=== PATIENT | male | born 1940 | race Caucasian/White ===

== ENCOUNTER 2018-10-10 12:57 | Inpatient (IN) ==
[2018-10-10] MEDS ORDERED: DUONEB (A & A) INH ONE ×2 (13:21→14:47)
[2018-10-10] MEDS ORDERED: SOLU-MEDROL IV ONE (13:22)
[2018-10-10 13:54] LABS: BASO# 0.04 X1000 (0.0-0.2); BASO% 0.4 % (0.0-0.8); EOS# 1.17 X1000 (0.0-0.7); EOS% 11.5 % (0.0-10.0); HEMATOCRIT 46.8 % (42.0-52.0); HEMOGLOBIN 15.2 g/dL (14.0-18.0); IMM GRAN# 0.04 X1000 (0.0-0.04); IMM GRAN% 0.4 % (0.0-0.5); LYMPH# 2.34 X1000 (1.2-3.4); MCH 29.2 PG (27-31); MCHC 32.5 g/dL (33-37); MCV 89.8 FL (81-99); MONO# 1.23 X1000 (0.11-0.59); MONO% 12.1 % (1.7-9.3); MPV 10.1 FL (7.4-10.4); NEUT# 5.36 X1000 (1.4-6.5); NEUT% 52.6 % (42.2-75.2); PLT 315 X1000 (130-400); RBC 5.21 XMIL (4.7-6.1); RDW 13.1 % (11.5-14.5); WBC 10.18 X1000 (4.8-10.8)
[2018-10-10 14:03] LABS: INR 0.93; PROTIME 13.2 Seconds (11.0-16.0)
[2018-10-10 14:04] LABS: PTT 33.6 Seconds (22.3-41.8)
[2018-10-10 14:13] LABS: AGAP 13; ALB/GLOB RATIO 1.1; ALBUMIN 3.7 g/dL (3.5-5.0); ALKALINE PHOSPHATASE 138 U/L (32-122); BUN 13 mg/dL (8-22); CALCIUM 9.9 mg/dL (8.8-10.2); CHLORIDE 102 mmol/L (98-107); CK PROFILE 77 U/L (24-204); COSMO 276; ESTIMATED GFR > 60; GLUCOSE 74 mg/dL (70-104); GOT 19 U/L (10-34); GPT 10 U/L (10-44); POTASSIUM 4.5 mmol/L (3.5-5.1); SODIUM 139 mmol/L (136-145); TCO2 24 mmol/L (25-35); TOTAL BILIRUBIN 0.35 mg/dL (0.20-1.00); TOTAL PROTEIN 7.2 g/dL (6.3-8.3)
--- NOTE | 2018-10-10 14:36 | Diag Imaging Result Doc PS360 ---
EXAM: CHEST-1 VIEW INDICATION: wheezing, tachycardic TECHNIQUE: 2 views COMPARISON: 08/30/2015 FINDINGS: The lungs are grossly clear. There is no discrete pleural fluid collection or pneumothorax. The cardiomediastinal silhouette and central vasculature are grossly unremarkable. IMPRESSION: No evidence of acute pathology by plain radiograph. Electronically signed by Omar Santiago 10/10/2018 2:34 PM
[2018-10-10 15:33] LABS: URINE SOURCE CLEAN CATCH
[2018-10-10 15:37] LABS: BILIRUBIN URINE NEGATIVE (NEGATIVE); BLOOD URINE NEGATIVE (NEGATIVE); COLOR YELLOW; GLUCOSE URINE NEGATIVE (NEGATIVE); KETONE URINE NEGATIVE (NEGATIVE); LEUKOCYTES URINE NEGATIVE (NEGATIVE); NITRITE URINE NEGATIVE (NEGATIVE); PH URINE 5.5; PROTEIN URINE NEGATIVE (NEGATIVE); SP GRAVITY URINE 1.018; TURBIDITY URINE CLEAR (CLEAR); UROBILINOGEN URINE NORMAL (NORMAL)
[2018-10-10 15:38] LABS: UR EPITHELIAL CELLS <10 /HPF (<10); URINE BACTERIA NEGATIVE /HPF; URINE RBC <10 /HPF (<10); URINE WBC <10 /HPF (<10)
--- NOTE | 2018-10-10 19:36 | HISTORY AND PHYSICAL ---
CHIEF COMPLAINT: Shortness of breath, cough and wheezing for the last 2 days. HISTORY OF PRESENT ILLNESS: He is an 78-year-old white male patient of Dr. Archuleta, came in with 3- day history of URI symptoms, cough and wheezing. He is in mild respiratory distress. He is markedly wheezing. He was evaluated in the emergency room after treating with 3 bronchodilators treatment, without any help. Basically admitted to the hospital for acute asthmatic exacerbation. Most of the history was obtained from the patient's caregiver. He denies any chest pain. No swelling of feet. No PND. No orthopnea. PAST MEDICAL HISTORY: Hypertension, hyperlipidemia, dementia, depression, prostate cancer. PAST SURGICAL HISTORY: Reported prostatectomy, C-spine surgery through the back, left inguinal herniorrhaphy. MEDICATIONS: Vasotec 20 p.o. b.i.d., Crestor 20 daily, aspirin 81 mg daily, Aricept 10 mg daily, Namenda 10 p.o. b.i.d., Effexor 50 mg daily. ALLERGIES: Not known. SOCIAL HISTORY: He has been . Retired from [employer]. Lives in [place]. No smoking. No alcohol. Two children. Vaccinations were not up to date. He is Full [employer]. FAMILY HISTORY: No cancer. Father due to alcohol-related problems. Mother of old age. REVIEW OF SYSTEMS: HEENT: No vision problem. No earache. Sniffles, postnasal drainage, cough, congestion. History of neck surgery through the back. Cardiopulmonary: No chest pain. Shortness of breath, cough and wheezing. No PND. No orthopnea. No swelling of legs. GI: No nausea, vomiting, abdominal pain or bleeding per rectum. : Prostate surgery and inguinal hernia surgery on the left side. No back pain. Neurologic: No focal symptoms or weakness. Some short-term memory loss. No seizure activity. PHYSICAL EXAMINATION: GENERAL: He is 5 feet 11 inches, 148 pounds. Afebrile, pulse is 97, blood pressure 133/80. HEENT: Atraumatic, normocephalic. Pupils equal and react to light. Tongue is in midline. Nose and throat congested. NECK: Supple. Scar present on the back of the neck. JVD is not elevated. CHEST: Bilateral wheezing. HEART: Distant heart sounds. No murmur appreciated. ABDOMEN: Belly is soft, nontender. Midline lower abdominal scar as well as left inguinal area. RECTAL: Exam deferred. EXTREMITIES: No peripheral edema noted. SKIN: Multiple seborrheic keratoses noted. LABORATORY DATA: CBC: White cell count 10, hematocrit 46, platelets 315,000. PT/INR is normal. SMA 7 is normal. LFTs were normal. Alkaline phosphate is 138. Urinalysis is clear. Blood cultures are pending. DIAGNOSTIC DATA: Chest x-ray: No acute pathology noted. ASSESSMENT AND PLAN: 1. An 78-year-old white male admitted to the hospital with acute asthma exacerbation. Plan is bronchodilators, intravenous steroids, intravenous Levaquin. 2. Reconcile home medicines. 3. Dementia with short-term memory loss. We will check the B12 and TSH. Follow up on electrocardiogram and cardiac enzymes. 4. Deep venous thrombosis and gastrointestinal prophylaxis with Lovenox and Protonix. 5. Initiate vaccination protocol prior to the discharge. The patient has been admitted to Dr. Archuleta' service. As per the records, he had a pneumococcal vaccine 23. It was given in 2019. Discussed with the patient and the caregiver at bedside. We will follow up. cc: MD Dwayne Kelly Jr, MD
[2018-10-10] MEDS: LEVAQUIN 500 MG/D5W 500 MG/100 ML IVPB IV SCH (20:30)
[2018-10-10] MEDS: PROTONIX IV SCH (20:31)
[2018-10-10] MEDS: SODIUM CHLORIDE 0.9% INJ SCH (20:31)
[2018-10-10] MEDS: VASOTEC PO SCH (20:32)
[2018-10-10] MEDS: LOVENOX SUBQ SCH (20:32)
[2018-10-10] MEDS ORDERED: NAMENDA PO SCH (21:00)
[2018-10-10] MEDS: DUONEB (A & A) INH PRN ×2 (21:24→23:51)
[2018-10-10] MEDS: NAMENDA PO SCH (22:15)
[2018-10-10] MEDS: SOLU-MEDROL IV SCH (22:16)
[2018-10-11] MEDS: SOLU-MEDROL IV SCH ×3 (06:43→21:57)
[2018-10-11 07:04] LABS: TSH 0.38 uIUmL (0.27-4.20)
[2018-10-11] MEDS: ASPIRIN PO SCH (09:26)
[2018-10-11] MEDS: PRISTIQ ER PO SCH (09:26)
[2018-10-11] MEDS: VASOTEC PO SCH ×2 (09:26→21:56)
[2018-10-11] MEDS: CRESTOR PO SCH (09:26)
[2018-10-11] MEDS: NAMENDA PO SCH ×2 (09:27→20:37)
[2018-10-11] MEDS: ARICEPT PO SCH (09:27)
[2018-10-11] MEDS: DUONEB (A & A) INH PRN ×2 (10:34→17:21)
--- NOTE | 2018-10-11 13:29 | PROGRESS NOTE ---
DATE: 10/11/2018 SUBJECTIVE: The patient is a little better and decreased wheezing, shortness of breath. No chest pain. PHYSICAL EXAMINATION: Temperature is 98.8 degrees, pulse is 70, blood pressure is 113/74, room air 94%.HEENT: Within normal limits. Chest: No wheezing. Heart sounds are regular. Belly is soft, nontender. No obvious neurological deficits. ASSESSMENT AND PLAN: 1. Acute asthma exacerbation. Continue on IV Levaquin, IV steroids, and bronchodilators. 2. Dementia, stable. Follow up on laboratory data. B12, TSH are normal. 3. Follow-up on cardiac enzymes was negative. 4. Continue present treatment. 5. Dr. Archuleta is going to follow up in the morning. LEVEL OF DOCUMENTATION: 25 minutes. cc: MD Dwayne Kelly Jr, MD MTDD
[2018-10-11] MEDS: LEVAQUIN 500 MG/D5W 500 MG/100 ML IVPB IV SCH (20:36)
[2018-10-11] MEDS: LOVENOX SUBQ SCH (20:36)
[2018-10-11] MEDS: SODIUM CHLORIDE 0.9% INJ SCH (20:37)
[2018-10-11] MEDS: PROTONIX IV SCH (20:37)
[2018-10-12] MEDS: SOLU-MEDROL IV SCH ×3 (06:56→21:55)
[2018-10-12] MEDS: DUONEB (A & A) INH PRN ×2 (07:15→21:35)
--- NOTE | 2018-10-12 08:40 | EKG Report ---
Test Performed on : 10/10/2018 1:12:41 PM Test Reason : SOB Blood Pressure : / mmHG Vent. Rate : 094 BPM Atrial Rate : 094 BPM P-R Int : 132 ms QRS Dur : 110 ms QT Int : 356 ms P-R-T Axes : 079 -36 062 degrees QTc Int : 445 ms Normal sinus rhythm. Left axis deviation Right bundle branch block Abnormal ECG When compared with ECG of 30-AUG-2015 17:20, No significant change was found Unconfirmed Result
--- NOTE | 2018-10-12 08:45 | PROGRESS NOTE ---
DATE: 10/12/2018 SUBJECTIVE: The patient says he is feeling better. He does not appear to be short of breath at this point. OBJECTIVE: Vital Signs: Blood pressure is 131/78, respirations 18, pulse 80, temperature 98 degrees Fahrenheit, oxygen saturation is 92% on room air. HEENT: Normocephalic. EOMS intact. PERRLA. Throat clear. Lungs: Scattered wheezes with a few rales anteriorly. Heart: Regular rate and rhythm without murmurs, gallops, or friction rubs. Abdomen: Soft. Active bowel sounds. No organomegaly or tenderness. Neurological: Intact grossly, except for a little dementia. ASSESSMENT: 1. Bronchospasm. 2. Bronchitis. 3. Dementia. PLAN: Continue treatment with IV steroids and IV Solu-Medrol. The patient is improving. cc: Dwayne Archuleta Jr, MD
[2018-10-12] MEDS: PRISTIQ ER PO SCH (10:26)
[2018-10-12] MEDS: VASOTEC PO SCH ×2 (10:27→21:51)
[2018-10-12] MEDS: ASPIRIN PO SCH (10:27)
[2018-10-12] MEDS: NAMENDA PO SCH ×2 (10:27→21:50)
[2018-10-12] MEDS: ARICEPT PO SCH (10:28)
[2018-10-12] MEDS: CRESTOR PO SCH (10:28)
[2018-10-12] MEDS: LEVAQUIN 500 MG/D5W 500 MG/100 ML IVPB IV SCH (21:50)
[2018-10-12] MEDS: PROTONIX IV SCH (21:52)
[2018-10-12] MEDS: SODIUM CHLORIDE 0.9% INJ SCH (21:52)
[2018-10-12] MEDS: LOVENOX SUBQ SCH (21:52)
[2018-10-13] MEDS: DUONEB (A & A) INH PRN ×5 (03:20→23:52)
[2018-10-13 06:35] LABS: HEMATOCRIT 39.6 % (42.0-52.0); HEMOGLOBIN 12.8 g/dL (14.0-18.0); IMM GRAN# 0.06 X1000 (0.0-0.04); IMM GRAN% 0.4 % (0.0-0.5); LYMPH# 0.57 X1000 (1.2-3.4); LYMPH% 3.9 % (20.5-51.1); MCH 29.1 PG (27-31); MCHC 32.3 g/dL (33-37); MONO# 0.94 X1000 (0.11-0.59); MONO% 6.4 % (1.7-9.3); MPV 10.4 FL (7.4-10.4); NEUT# 13.16 X1000 (1.4-6.5); NEUT% 89.3 % (42.2-75.2); PLT 279 X1000 (130-400); RDW 13.2 % (11.5-14.5); WBC 14.73 X1000 (4.8-10.8)
[2018-10-13] MEDS: SOLU-MEDROL IV SCH ×3 (06:57→21:24)
[2018-10-13 07:15] LABS: CALCIUM 9.4 mg/dL (8.8-10.2); CREATININE 1.2 mg/dL (0.7-1.2); POTASSIUM 4.7 mmol/L (3.5-5.1)
--- NOTE | 2018-10-13 09:15 | PROGRESS NOTE ---
DATE: 10/13/2018 SUBJECTIVE: Patient says he has still been wheezing some. He is feeling better overall. OBJECTIVE: Vital Signs: Blood pressure 148/75, pulse is 61, respirations 21, temperature 97.8 degrees Fahrenheit. HEENT: Normocephalic. EOMs intact. PERRLA. Throat clear. Lungs: Still have scattered wheezes. Did not hear any rales today. Heart: Regular rate and rhythm without murmurs, gallops, friction rubs. Abdomen: Soft. Active bowel sounds. No organomegaly or tenderness. Neurological: Intact grossly except for his dementia, though he did know that this was the last day of the month. ASSESSMENT: 1. Bronchospasm. 2. Bronchitis. 3. Dementia. PLAN: Continue treatment as he is still wheezing. He is on IV steroids and breathing treatments and antibiotics. cc: Dwayne Archuleta Jr, MD
[2018-10-13] MEDS: ARICEPT PO SCH (09:47)
[2018-10-13] MEDS: PRISTIQ ER PO SCH (09:47)
[2018-10-13] MEDS: VASOTEC PO SCH ×2 (09:47→21:25)
[2018-10-13] MEDS: ASPIRIN PO SCH (09:47)
[2018-10-13] MEDS: NAMENDA PO SCH ×2 (09:47→21:25)
[2018-10-13] MEDS: CRESTOR PO SCH (09:47)
[2018-10-13] MEDS: SODIUM CHLORIDE 0.9% INJ SCH (21:24)
[2018-10-13] MEDS: PROTONIX IV SCH (21:24)
[2018-10-13] MEDS: LEVAQUIN 500 MG/D5W 500 MG/100 ML IVPB IV SCH (21:25)
[2018-10-13] MEDS: LOVENOX SUBQ SCH (21:25)
[2018-10-14] MEDS: DUONEB (A & A) INH PRN ×2 (03:06→07:57)
[2018-10-14] MEDS: SOLU-MEDROL IV SCH ×2 (03:12→06:14)
[2018-10-14 06:54] LABS: HEMATOCRIT 39.4 % (42.0-52.0); HEMOGLOBIN 12.9 g/dL (14.0-18.0); IMM GRAN# 0.04 X1000 (0.0-0.04); IMM GRAN% 0.4 % (0.0-0.5); LYMPH# 0.44 X1000 (1.2-3.4); LYMPH% 4.1 % (20.5-51.1); MCH 29.3 PG (27-31); MCHC 32.7 g/dL (33-37); MCV 89.5 FL (81-99); MONO# 0.85 X1000 (0.11-0.59); MONO% 7.9 % (1.7-9.3); MPV 10.6 FL (7.4-10.4); NEUT# 9.43 X1000 (1.4-6.5); NEUT% 87.6 % (42.2-75.2); PLT 249 X1000 (130-400); RDW 13.3 % (11.5-14.5); WBC 10.76 X1000 (4.8-10.8)
[2018-10-14 07:14] LABS: CALCIUM 8.9 mg/dL (8.8-10.2); CREATININE 1.3 mg/dL (0.7-1.2)
[2018-10-14 07:42] LABS: LYMPHS 12 % (21-51); SEGS 76 % (42-75)
[2018-10-14 08:14] VITALS: BP 113/67
[2018-10-14] MEDS: ARICEPT PO SCH (09:29)
[2018-10-14] MEDS: NAMENDA PO SCH (09:29)
[2018-10-14] MEDS: PRISTIQ ER PO SCH (09:29)
[2018-10-14] MEDS: ASPIRIN PO SCH (09:30)
[2018-10-14] MEDS: CRESTOR PO SCH (09:30)
[2018-10-14] MEDS: VASOTEC PO SCH (09:30)
--- NOTE | 2018-10-14 11:19 | DISCHARGE SUMMARY ---
ADMISSION DATE: 10/10/2018 DISCHARGE DATE: 10/14/2018 FINAL DIAGNOSES: 1. Reactive airway disease/bronchospasm. 2. Bronchitis. SECONDARY DIAGNOSES: 1. Hypertension. 2. Hyperlipidemia. 3. Dementia. 4. Depression. 5. Prostate cancer history. HISTORY OF PRESENT ILLNESS: The patient is an 78-year-old white male who came in with 3-day history of URI symptoms coughing and wheezing. He had mild respiratory distress that did not respond initially to bronchodilators in the emergency room, and was admitted because of the bronchospasm and bronchitis. He was placed on Levaquin 500 mg daily IV q.12 q. 24 hours. He has gradually gotten better. OBJECTIVE: Vital Signs: Blood pressure 113/67, respirations 16, pulse 100, and temperature 97.4 degrees Fahrenheit. He does feel much better, and wants to go home. HEENT: Normocephalic. PERRLA. Throat clear. Lungs: A few wheezes in the bases bilaterally but much better overall. Heart: Regular rate and rhythm without murmurs, gallops, or friction rubs. Abdomen: Soft. Active bowel sounds. No organomegaly or tenderness. Neurological: Cranial nerves 2-12 intact grossly. Sensory motor intact. Reflexes 1+ all. He does have some dementia but seems to be doing a little bit better right now. PLAN: 1. We will discharge him home on his home medications plus Levaquin 500 mg daily for 7 more days. 2. We will do a Medrol Dosepak instead, and place him on Breo 1 puff daily, and albuterol MDI 2 puffs every 4 hours as needed for wheezing. 3. I will see him back in my office 1 week. cc: Dwayne Archuleta Jr, MD
[2018-10-14] MEDS ORDERED: PROTONIX PO SCH (21:00)
== END 2018-10-14 12:19 | disposition home or self-care (01) | DRG 203 ==
LOC: ED 12:57 → 4N 17:03
PROVIDERS: ADMIT Emergency Medicine; ATTEND Emergency Medicine
CPT/HCPCS: 71010; 71045; 80048; 80053; 81001; 82550; 82607; 83605; 83880; 84443; 84484; 85025; 85610; 85730; 87040; 93005; 94640; 94760; 94761; 96374; 99285; A9270; C9113; J1650; J1956; J2930; S0164